=== PATIENT | female | born 1955 | race Caucasian/White ===

== ENCOUNTER 2019-10-27 08:18 | Day surgery (SDC) | payer MEDICARE ==
[~2019-10-27] VITALS: Ht 160 cm; Wt 75.0 kg
[2019-10-27] MEDS ORDERED: LISI-170 PO (09:19)
[2019-10-27] MEDS ORDERED: NITR2.5C8 PO (09:19)
[2019-10-27] MEDS ORDERED: ASPI-496 PO (09:19)
[2019-10-27] MEDS ORDERED: VITA1CAP PO (09:19)
[2019-10-27] MEDS ORDERED: DIPH25CA81 PO (09:19)
[2019-10-27] MEDS ORDERED: ROSU40TA PO (09:19)
[2019-10-27] MEDS ORDERED: METF500T17 PO (09:19)
[2019-10-27] MEDS ORDERED: CHOL500015 PO (09:19)
[2019-10-27] MEDS ORDERED: PANT40TA5 PO (09:19)
[2019-10-27] MEDS ORDERED: LIDOCAINE-MPF 1%, 5ML ONE (09:50)
[2019-10-27] MEDS ORDERED: SODIUM CHLORIDE 0.9% 1,000 ML IV SCH (11:00)
[2019-10-27] MEDS ORDERED: MIDAZOLAM 1 MG/ML, 5ML ONE (12:31)
[2019-10-27] MEDS ORDERED: FENTANYL PF 100 MCG/2ML ONE (12:31)
[2019-10-27] MEDS ORDERED: LIDOCAINE 2%, 20ML ONE (12:32)
[2019-10-27] MEDS ORDERED: TICAGRELOR 90 MG TABLET ONE (12:32)
[2019-10-27] MEDS ORDERED: VERAPAMIL 2.5 MG/ML, 2ML ONE (12:32)
[2019-10-27] MEDS ORDERED: HEPARIN 1,000 UNITS/ML, 10ML ONE (12:32)
[2019-10-27] MEDS ORDERED: BIVALIRUDIN 250 MG ONE (12:32)
[2019-10-27] MEDS ORDERED: NITROGLYCERIN 5 MG/ML, 10ML ONE (12:32)
[2019-10-27] MEDS ORDERED: ACETAMINOPHEN 325 MG TABLET PO ONE (15:30)
[2019-10-27] MEDS ORDERED: hydrALAzine 20 MG/ML, 1ML IV ONE (16:30)
[2019-10-27] MEDS ORDERED: hydrALAzine 20 MG/ML, 1ML ONE (16:38)
== END 2019-10-27 17:18 | disposition home or self-care (01) ==
LOC: CACL 08:18
PROVIDERS: ATTEND Internal Medicine Cardiovascular Disease
DX: I25.110 Atherosclerotic heart disease of native coronary artery with unstable angina pectoris (principal); I25.83 Coronary atherosclerosis due to lipid rich plaque; I25.2 Old myocardial infarction; I10 Essential (primary) hypertension; E11.9 Type 2 diabetes mellitus without complications; E78.5 Hyperlipidemia, unspecified; E66.3 Overweight; Z68.30 Body mass index [BMI] 30.0-30.9, adult; Z79.84 Long term (current) use of oral hypoglycemic drugs; Z79.82 Long term (current) use of aspirin; Z79.899 Other long term (current) drug therapy; Z91.040 Latex allergy status; Z95.5 Presence of coronary angioplasty implant and graft; Z86.73 Personal history of transient ischemic attack (TIA), and cerebral infarction without residual deficits; Z90.710 Acquired absence of both cervix and uterus; Z90.49 Acquired absence of other specified parts of digestive tract; Z98.890 Other specified postprocedural states; Z82.49 Family history of ischemic heart disease and other diseases of the circulatory system
CPT/HCPCS: 93458; 99156; C1769; C1894; J0360; J1644; J2250; J3010; Q9967; J0583

== ENCOUNTER → 2020-01-11 | Outpatient (CLI) | payer MEDICARE ==
[~2020-01-11] MED LIST: ASPI-496 PO; CHOL500015 PO; DIPH25CA81 PO; LISI-170 PO; METF500T17 PO; NITR2.5C8 PO; PANT40TA5 PO; ROSU40TA PO; VITA1CAP PO
[2020-01-11 10:43] LABS: BASOPHILS # (AUTO) 0.02 x10^3/uL (0-0.1); BASOPHILS % (AUTO) 0 % (0-1); EOSINOPHILS # (AUTO) 0.07 x10^3/uL (0-0.4); EOSINOPHILS % (AUTO) 2 % (1-7); LYMPHOCYTES # (AUTO) 1.35 x10^3/uL (1-3.4); LYMPHOCYTES % (AUTO) 34 % (22-44); MD NO; MEAN CORPUSCULAR HEMOGLOBIN 29.8 pg (27.0-34.8); MEAN CORPUSCULAR HGB CONC 33.4 g/dL (32.4-35.8); MEAN CORPUSCULAR VOLUME 89.3 fL (80-100); MEAN PLATELET VOLUME 7.3 fL (7.4-10.4); MONOCYTES # (AUTO) 0.29 x10^3/uL (0.2-0.8); MONOCYTES % (AUTO) 7 % (2-9); NEUTROPHILS % (AUTO) 56 % (42-75); PLATELET COUNT 210 x10^3/uL (130-400); RED BLOOD COUNT 4.76 x10^6/uL (3.82-5.3); RED CELL DISTRIBUTION WIDTH 13.6 % (9.6-15.2)
[2020-01-11 10:56] LABS: ALBUMIN 3.9 g/dL (3.4-5.0); ANION GAP 4 mmol/L (5-15); CHLORIDE 108 mmol/L (98-107)
[2020-01-11 11:01] LABS: ALANINE AMINOTRANSFERASE 25 U/L (12-78); ALKALINE PHOSPHATASE 52 U/L (45-117); BILIRUBIN,TOTAL 0.8 mg/dL (0.2-1.0); CHOL/HDL RATIO 2.9; CHOLESTEROL, TOTAL 158 mg/dL (140-239); CREATININE 0.79 mg/dL (0.55-1.02); HDL CHOL % 35 % (28-40); HDL CHOLESTEROL (DIRECT) 55 mg/dL (40-60); LDL CHOLESTEROL,CALCULATED 82 mg/dL (54-169); LDL/HDL RATIO 1.5 (0.5-3.0); TOTAL PROTEIN 7.2 g/dL (6.4-8.2); TRIGLYCERIDES 106 mg/dL (50-200); VLDL CHOLESTEROL 21 mg/dL (0-25)
== END | disposition home or self-care (01) ==
LOC: LAB 10:17
PROVIDERS: ATTEND Registered Nurse
DX: E11.9 Type 2 diabetes mellitus without complications (principal); E78.5 Hyperlipidemia, unspecified; I10 Essential (primary) hypertension; I25.2 Old myocardial infarction; I63.9 Cerebral infarction, unspecified; I65.21 Occlusion and stenosis of right carotid artery; Z98.61 Coronary angioplasty status
CPT/HCPCS: 36415; 80053; 80061; 83036; 85025

== ENCOUNTER → 2020-01-20 | Outpatient (CLI) | payer MEDICARE ==
[~2020-01-20] MED LIST changes: +ACETAMINOPHEN 325 MG TABLET ONE
== END | disposition home or self-care (01) ==
LOC: CVU 08:15
PROVIDERS: ATTEND Internal Medicine Cardiovascular Disease
DX: I08.3 Combined rheumatic disorders of mitral, aortic and tricuspid valves (principal); I65.22 Occlusion and stenosis of left carotid artery; I63.9 Cerebral infarction, unspecified; R07.9 Chest pain, unspecified
CPT/HCPCS: 93306; 93880

== ENCOUNTER 2020-02-20 16:08 | Inpatient (IN) | payer MEDICARE ==
[~2020-02-20] VITALS: Ht 160 cm; Wt 83.7 kg
[~2020-02-20 16:08] MED LIST changes: -ACETAMINOPHEN 325 MG TABLET ONE
--- NOTE | 2020-02-20 16:21 | NUR ---
PT WAS BIB EMS. LIVES IN [place] AND WENT TO THE ED THERE CO OF EPITAXIS SINCE THURSDAY AND HTN. UPON ARRIVAL TO ED HER HR WAS IN THE 30S. PT THEN HAS BEEN TRASNPORTED TO [facility] FOR CARDIAC WORKUP. NO INTERVENTIONS WERE DONE IN [place]. PT IS ASYMPTOMATIC AND HR IS CURRENTLY IN THE 50S. PT IS CONNECTED TO [employer].
[2020-02-20 17:26] LABS: TROPONIN I < 0.015 ng/mL (0.000-0.045)
--- NOTE | 2020-02-20 17:50 | NUR ---
PT RESTING IN [facility]. PT REQUESTING FOOD. TOLD HER WE NEEDED TO WAIT UNTIL THE LAB RESULTS COME BACK. SHE AGREED
[2020-02-20] MEDS ORDERED: CARV12.52 PO (18:18)
[2020-02-20] MEDS ORDERED: ONDANSETRON 2MG/ML, 2ML IVPush PRN (18:30)
[2020-02-20 19:30] VITALS: BP 192/85
[2020-02-20 20:00] VITALS: BP 192/85
[2020-02-20] MEDS: hydrALAzine 20 MG/ML, 1ML IVPush PRN (20:34)
[2020-02-20] MEDS: INSULIN LISPRO 100 UNITS/ML, PEN SQ-INSULIN SCH (21:00)
[2020-02-20] MEDS: ATORVASTATIN 80 MG TABLET PO SCH (22:46)
[2020-02-21 01:44] VITALS: BP 170/7
[2020-02-21] MEDS: hydrALAzine 20 MG/ML, 1ML IVPush PRN ×2 (02:02→14:14)
[2020-02-21 04:32] LABS: BASOPHILS # (AUTO) 0.02 x10^3/uL (0-0.1); BASOPHILS % (AUTO) 1 % (0-1); EOSINOPHILS # (AUTO) 0.13 x10^3/uL (0-0.4); EOSINOPHILS % (AUTO) 3 % (1-7); LYMPHOCYTES # (AUTO) 1.21 x10^3/uL (1-3.4); LYMPHOCYTES % (AUTO) 32 % (22-44); MD NO; MEAN CORPUSCULAR HEMOGLOBIN 29.5 pg (27.0-34.8); MEAN CORPUSCULAR HGB CONC 33.4 g/dL (32.4-35.8); MEAN CORPUSCULAR VOLUME 88.5 fL (80-100); MEAN PLATELET VOLUME 7.7 fL (7.4-10.4); MONOCYTES # (AUTO) 0.29 x10^3/uL (0.2-0.8); MONOCYTES % (AUTO) 8 % (2-9); NEUTROPHILS # (AUTO) 2.17 x10^3/uL (1.8-6.8); NEUTROPHILS % (AUTO) 57 % (42-75); PLATELET COUNT 186 x10^3/uL (130-400); RED CELL DISTRIBUTION WIDTH 13.7 % (9.6-15.2)
[2020-02-21 04:43] LABS: ANION GAP 5 mmol/L (5-15); CHLORIDE 111 mmol/L (98-107); CREATININE 0.68 mg/dL (0.55-1.02)
[2020-02-21 04:54] LABS: FREE T4 (FREE THYROXINE) 1.25 ng/dL (0.76-1.46)
[2020-02-21] MEDS ORDERED: ACETAMINOPHEN 325 MG TABLET ONE (05:17)
[2020-02-21] MEDS: ACETAMINOPHEN 325 MG TABLET PO PRN ×2 (05:20→10:44)
[2020-02-21 06:51] VITALS: BP 162/93
[2020-02-21] MEDS: INSULIN LISPRO 100 UNITS/ML, PEN SQ-INSULIN SCH ×4 (07:00→20:10)
[2020-02-21] MEDS: ASPIRIN 81 MG TABLET EC PO SCH (08:43)
[2020-02-21] MEDS: CHOLECALCIFEROL 5,000u TAB PO SCH (08:44)
[2020-02-21] MEDS: PANTOPRAZOLE 40MG TABLET PO SCH (08:44)
[2020-02-21] MEDS ORDERED: LISINOPRIL 20 MG TABLET PO SCH (09:00)
[2020-02-21] MEDS ORDERED: AMLODIPINE 5 MG TABLET PO SCH (09:30)
[2020-02-21] MEDS ORDERED: MAGNESIUM SULFATE PMX 2GM/50ML 50 ML IV ONE (09:30)
[2020-02-21] MEDS: AMLODIPINE 5 MG TABLET PO SCH ×2 (11:53→20:09)
[2020-02-21 14:03] VITALS: BP 194/93
[2020-02-21 15:07] VITALS: BP 134/77
[2020-02-21] MEDS ORDERED: MORPHINE SULFATE 4 MG/ML, 1ML IVPush PRN (17:30)
[2020-02-21 20:05] VITALS: BP 150/93
[2020-02-21] MEDS: LISINOPRIL 20 MG TABLET PO SCH (20:09)
[2020-02-21] MEDS: ATORVASTATIN 80 MG TABLET PO SCH (20:09)
[2020-02-22 00:55] VITALS: BP 113/70
[2020-02-22 05:16] LABS: CHLORIDE 106 mmol/L (98-107)
[2020-02-22 05:18] LABS: BASOPHILS # (AUTO) 0.01 x10^3/uL (0-0.1); BASOPHILS % (AUTO) 0 % (0-1); EOSINOPHILS # (AUTO) 0.04 x10^3/uL (0-0.4); EOSINOPHILS % (AUTO) 1 % (1-7); LYMPHOCYTES # (AUTO) 1.36 x10^3/uL (1-3.4); LYMPHOCYTES % (AUTO) 25 % (22-44); MD NO; MEAN CORPUSCULAR HEMOGLOBIN 29.6 pg (27.0-34.8); MEAN CORPUSCULAR HGB CONC 33.2 g/dL (32.4-35.8); MEAN CORPUSCULAR VOLUME 89.2 fL (80-100); MEAN PLATELET VOLUME 8.3 fL (7.4-10.4); MONOCYTES # (AUTO) 0.42 x10^3/uL (0.2-0.8); MONOCYTES % (AUTO) 8 % (2-9); NEUTROPHILS # (AUTO) 3.72 x10^3/uL (1.8-6.8); NEUTROPHILS % (AUTO) 67 % (42-75); PLATELET COUNT 200 x10^3/uL (130-400); RED BLOOD COUNT 5.02 x10^6/uL (3.82-5.3); RED CELL DISTRIBUTION WIDTH 14.1 % (9.6-15.2)
[2020-02-22 05:23] LABS: ALANINE AMINOTRANSFERASE 23 U/L (12-78); ALBUMIN 3.8 g/dL (3.4-5.0); ALKALINE PHOSPHATASE 50 U/L (45-117); ANION GAP 9 mmol/L (5-15); CALCIUM 9.2 mg/dL (8.5-10.1); CREATININE 0.76 mg/dL (0.55-1.02); TOTAL PROTEIN 7.3 g/dL (6.4-8.2)
[2020-02-22 06:39] VITALS: BP 156/84
[2020-02-22] MEDS: INSULIN LISPRO 100 UNITS/ML, PEN SQ-INSULIN SCH ×4 (07:00→20:17)
[2020-02-22] MEDS ORDERED: CEFAZOLIN PMX 1GM/50ML 50 ML IVPB ONE (09:00)
[2020-02-22] MEDS ORDERED: SODIUM CHLORIDE 0.9% 1,000 ML IV SCH (09:00)
[2020-02-22] MEDS: CHOLECALCIFEROL 5,000u TAB PO SCH (09:23)
[2020-02-22] MEDS: ASPIRIN 81 MG TABLET EC PO SCH (09:23)
[2020-02-22] MEDS: PANTOPRAZOLE 40MG TABLET PO SCH (09:23)
[2020-02-22] MEDS: AMLODIPINE 5 MG TABLET PO SCH ×2 (09:23→20:04)
[2020-02-22] MEDS: LISINOPRIL 20 MG TABLET PO SCH ×2 (09:23→20:05)
[2020-02-22] MEDS ORDERED: MIDAZOLAM 1 MG/ML, 5ML ONE (12:26)
[2020-02-22] MEDS ORDERED: LIDOCAINE 2%, 20ML ONE (12:27)
[2020-02-22] MEDS ORDERED: CEFAZOLIN PMX 1GM/50ML 50 ML ONE (12:27)
[2020-02-22] MEDS ORDERED: CEFAZOLIN 1,000 MG ONE (12:27)
[2020-02-22] MEDS ORDERED: FENTANYL PF 100 MCG/2ML ONE (12:27)
[2020-02-22] MEDS ORDERED: LIDOCAINE 1%, 20ML ONE (13:06)
[2020-02-22 13:50] VITALS: BP 137/80
[2020-02-22] MEDS ORDERED: HOLD MEDICATION MC PRN (14:00)
[2020-02-22 19:01] VITALS: BP 116/77
[2020-02-22 20:00] VITALS: BP 150/85
[2020-02-22] MEDS: ATORVASTATIN 80 MG TABLET PO SCH (20:04)
[2020-02-22] MEDS: MAGNESIUM CHLORIDE 64 MG TABLET.DR PO SCH (20:04)
[2020-02-22] MEDS: SODIUM CHLORIDE FLUSH 10ML SYR IVF SCH (20:05)
[2020-02-22] MEDS: CEFAZOLIN PMX 1GM/50ML 50 ML IVPB SCH (20:05)
[2020-02-22] MEDS: ACETAMINOPHEN 325 MG TABLET PO PRN (22:43)
[2020-02-23 01:28] VITALS: BP 140/88
[2020-02-23] MEDS: ACETAMINOPHEN 325 MG TABLET PO PRN ×3 (04:47→13:16)
[2020-02-23] MEDS: CEFAZOLIN PMX 1GM/50ML 50 ML IVPB SCH ×2 (04:47→11:40)
[2020-02-23 04:56] LABS: BASOPHILS # (AUTO) 0.02 x10^3/uL (0-0.1); BASOPHILS % (AUTO) 0 % (0-1); EOSINOPHILS # (AUTO) 0.04 x10^3/uL (0-0.4); EOSINOPHILS % (AUTO) 1 % (1-7); LYMPHOCYTES % (AUTO) 19 % (22-44); MD NO; MEAN CORPUSCULAR HEMOGLOBIN 29.7 pg (27.0-34.8); MEAN CORPUSCULAR HGB CONC 33.4 g/dL (32.4-35.8); MEAN CORPUSCULAR VOLUME 89.1 fL (80-100); MEAN PLATELET VOLUME 7.7 fL (7.4-10.4); MONOCYTES # (AUTO) 0.56 x10^3/uL (0.2-0.8); MONOCYTES % (AUTO) 10 % (2-9); NEUTROPHILS # (AUTO) 3.95 x10^3/uL (1.8-6.8); NEUTROPHILS % (AUTO) 70 % (42-75); PLATELET COUNT 190 x10^3/uL (130-400); RED CELL DISTRIBUTION WIDTH 14.4 % (9.6-15.2)
[2020-02-23 05:04] LABS: ALANINE AMINOTRANSFERASE 24 U/L (12-78); ALBUMIN 3.7 g/dL (3.4-5.0); ANION GAP 7 mmol/L (5-15); CALCIUM 8.7 mg/dL (8.5-10.1); CHLORIDE 109 mmol/L (98-107); CREATININE 0.73 mg/dL (0.55-1.02)
[2020-02-23 05:07] LABS: ALKALINE PHOSPHATASE 55 U/L (45-117); BILIRUBIN,TOTAL 0.9 mg/dL (0.2-1.0); TOTAL PROTEIN 7.3 g/dL (6.4-8.2)
[2020-02-23 06:58] VITALS: BP 154/93
[2020-02-23] MEDS: INSULIN LISPRO 100 UNITS/ML, PEN SQ-INSULIN SCH ×2 (07:00→10:59)
[2020-02-23] MEDS: MAGNESIUM CHLORIDE 64 MG TABLET.DR PO SCH (08:02)
[2020-02-23] MEDS: SODIUM CHLORIDE FLUSH 10ML SYR IVF SCH (08:02)
[2020-02-23] MEDS: AMLODIPINE 5 MG TABLET PO SCH (08:03)
[2020-02-23] MEDS: LISINOPRIL 20 MG TABLET PO SCH (08:03)
[2020-02-23] MEDS: ASPIRIN 81 MG TABLET EC PO SCH (08:03)
[2020-02-23] MEDS: PANTOPRAZOLE 40MG TABLET PO SCH (08:03)
[2020-02-23] MEDS: CHOLECALCIFEROL 5,000u TAB PO SCH (08:04)
[2020-02-23] MEDS ORDERED: CARVEDILOL 12.5 MG TABLET PO SCH (08:30)
[2020-02-23] MEDS ORDERED: CARV12.52 PO (09:47)
[2020-02-23] MEDS ORDERED: AMLO-150 PO (09:47)
[2020-02-23 12:24] VITALS: BP 170/87
== END 2020-02-23 13:36 | disposition home or self-care (01) | DRG 244 ==
LOC: ED 17:03 → 5SO 18:13
PROVIDERS: ADMIT Internal Medicine; ATTEND Internal Medicine
PROC: 0JH606Z Insertion of Pacemaker, Dual Chamber into Chest Subcutaneous Tissue and Fascia, Open Approach (ICD-10-PCS; principal; 2020-02-22)
PROC: 02H63JZ Insertion of Pacemaker Lead into Right Atrium, Percutaneous Approach (ICD-10-PCS; 2020-02-22)
PROC: 02HK3JZ Insertion of Pacemaker Lead into Right Ventricle, Percutaneous Approach (ICD-10-PCS; 2020-02-22)
DX: I49.5 Sick sinus syndrome (principal); I16.0 Hypertensive urgency; R04.0 Epistaxis; E78.5 Hyperlipidemia, unspecified; E11.65 Type 2 diabetes mellitus with hyperglycemia; I10 Essential (primary) hypertension; I25.10 Atherosclerotic heart disease of native coronary artery without angina pectoris; K21.9 Gastro-esophageal reflux disease without esophagitis; M19.90 Unspecified osteoarthritis, unspecified site; Z79.84 Long term (current) use of oral hypoglycemic drugs; Z79.899 Other long term (current) drug therapy; Z82.49 Family history of ischemic heart disease and other diseases of the circulatory system; Z86.73 Personal history of transient ischemic attack (TIA), and cerebral infarction without residual deficits; Z90.710 Acquired absence of both cervix and uterus; Z87.891 Personal history of nicotine dependence; Z95.5 Presence of coronary angioplasty implant and graft; G43.909 Migraine, unspecified, not intractable, without status migrainosus
CPT/HCPCS: 33208; 36415; 70450; 71045; 80048; 80053; 82962; 83735; 84436; 84439; 84443; 84481; 84484; 85025; 93005; 99156; 99157; 99285; C1779; C1785; C1892; G0378; J0690; J2250; J2405; J3010; J0360; J2270; J3475; J7030